=== PATIENT | female | born 1940 | race Caucasian/White ===

== ENCOUNTER 2017-03-23 18:20 | Emergency (ER) | payer OTHER ==
[~2017-03-23] VITALS: Ht 167.6 cm; Wt 90.7 kg
[~2017-03-23 18:20] MED LIST: FLUO20TA29 PO; KETO125C TP; LATA2.5D6 OP; LISI-221 PO; LISI-600 PO; LYR50 PO; NOR10 PO; OMEP20CA10 PO; OXYB10TA4 PO; PRO20 PO; TRAM50TA92 PO; VIT1TABL94 PO; VITA400T9 PO
[2017-03-23 18:31] VITALS: BP_SYST 149
[2017-03-23] MEDS ORDERED: KETOROLAC TROMETHAMINE 30 MG VIAL IM ONE ×2 (20:00→20:45)
[2017-03-23 21:10] VITALS: BP_SYST 129
== END 2017-03-23 21:10 | disposition home or self-care (01) ==
LOC: SED 18:20
DX: G62.9 Polyneuropathy, unspecified (principal); I10 Essential (primary) hypertension; M54.30 Sciatica, unspecified side
CPT/HCPCS: 96372; 99284; J1885

== ENCOUNTER 2018-03-01 08:35 | Emergency (ER) | payer OTHER ==
[~2018-03-01] VITALS: Ht 167.6 cm; Wt 90.7 kg
[2018-03-01 08:35] VITALS: BP_SYST 125
[~2018-03-01 08:35] MED LIST changes: +ACET325T53 PO; +CAT.2 PO; +DORZ10DR8 OP; -FLUO20TA29 PO; +IRON28TA4 PO; -LATA2.5D6 OP; +LIP10 PO; -LISI-600 PO; -LYR50 PO; +MECL12.584 PO; +MELO15TA13 PO; +MIRA50TA PO; -OXYB10TA4 PO; +SPIR25TA PO; -TRAM50TA92 PO; +TROS20TA2 PO
[2018-03-01] MEDS ORDERED: KETOROLAC TROMETHAMINE 60 MG/2 ML VIAL IM ONE (08:45)
[2018-03-01] MEDS ORDERED: CYCLOBENZAPRINE HCL 10 MG TABLET (FLEXERIL) PO ONE (08:45)
[2018-03-01 09:16] LABS: BASOPHILS % (AUTO) 0.3 % (0.0-2.0); EOSINOPHILS # (AUTO) 0.1 K/uL (0.0-0.4); EOSINOPHILS % (AUTO) 1.6 % (0.0-4.0); HEMATOCRIT 33.6 % (36-48); HEMOGLOBIN 10.7 g/dL (12.0-16.0); LYMPHOCYTES % (AUTO) 19.5 % (20.5-51.5); MEAN CORPUSCULAR HEMOGLOBIN 26 pg (27-31); MEAN CORPUSCULAR HGB CONC 32 % (32-36); MEAN CORPUSCULAR VOLUME 81 fL (79.0-98.0); MONOCYTES # (AUTO) 0.4 K/uL (0.0-1.0); MONOCYTES % (AUTO) 7.2 % (1.7-9.3); NEUTROPHILS # (AUTO) 3.8 K/uL (1.8-7.7); NEUTROPHILS % (AUTO) 71.4 % (40.0-70.0); PLATELET COUNT (AUTO) 321 K/uL (130-430); RED BLOOD CELL COUNT(AUTO) 4.16 MIL/uL (4.2-6.2); WHITE BLOOD COUNT (AUTO) 5.4 K/uL (4.8-10.8)
[2018-03-01 09:24] LABS: ANION GAP 6 (5-15); CALCIUM 9.6 mg/dL (8.4-11.0); CHLORIDE 100 mmol/L (98-107); CREATININE 0.68 mg/dL (0.55-1.30); GLUCOSE 109 mg/dL (70-99); POTASSIUM 3.4 mmol/L (3.5-5.1); SODIUM SERUM 139 mmol/L (136-145); UREA NITROGEN, BLOOD 15 mg/dL (8-21)
[2018-03-01 09:32] LABS: ALANINE AMINOTRANSFERASE 15 U/L (12-78); ALBUMIN 3.3 g/dL (3.4-4.8); ASPARTATE AMINOTRANSFERASE 17 U/L (10-37); TOTAL BILIRUBIN 0.6 mg/dL (0.0-1.0)
[2018-03-01] MEDS ORDERED: POTASSIUM CHLORIDE 10 MEQ TAB.PRT.SR PO ONE (10:00)
[2018-03-01 10:14] VITALS: BP_SYST 128
== END 2018-03-01 10:14 | disposition home or self-care (01) ==
LOC: SED 08:35
DX: M19.011 Primary osteoarthritis, right shoulder (principal); E87.6 Hypokalemia; I10 Essential (primary) hypertension; M54.30 Sciatica, unspecified side; Z96.653 Presence of artificial knee joint, bilateral; Z79.899 Other long term (current) drug therapy
CPT/HCPCS: 36415; 71045; 73030; 80053; 84484; 85025; 93005; 96372; 99285; J1885

== ENCOUNTER 2018-03-22 13:49 | Inpatient (IN) | payer OTHER ==
[~2018-03-22] VITALS: Ht 167.6 cm; Wt 89.8 kg
[2018-03-22 13:49] VITALS: BP_SYST 141
[2018-03-22] MEDS ORDERED: CEFAZOLIN 1 GM IVPB PREMIX 50 ML IV ONE (14:00)
[2018-03-22 14:24] LABS: BASOPHILS % (AUTO) 0.5 % (0.0-2.0); EOSINOPHILS # (AUTO) 0.2 K/uL (0.0-0.4); EOSINOPHILS % (AUTO) 2.8 % (0.0-4.0); HEMATOCRIT 33.3 % (36-48); HEMOGLOBIN 10.9 g/dL (12.0-16.0); LYMPHOCYTES # (AUTO) 1.2 K/uL (1.0-5.5); LYMPHOCYTES % (AUTO) 19.3 % (20.5-51.5); MEAN CORPUSCULAR HEMOGLOBIN 26 pg (27-31); MEAN CORPUSCULAR HGB CONC 33 % (32-36); MEAN CORPUSCULAR VOLUME 79 fL (79.0-98.0); MONOCYTES # (AUTO) 0.8 K/uL (0.0-1.0); MONOCYTES % (AUTO) 12.8 % (1.7-9.3); NEUTROPHILS # (AUTO) 3.9 K/uL (1.8-7.7); NEUTROPHILS % (AUTO) 64.6 % (40.0-70.0); PLATELET COUNT (AUTO) 313 K/uL (130-430); RED BLOOD CELL COUNT(AUTO) 4.22 MIL/uL (4.2-6.2); RED CELL DISTRIBUTION WIDTH 15.7 % (9.0-15.0); WHITE BLOOD COUNT (AUTO) 6.1 K/uL (4.8-10.8)
[2018-03-22 14:40] LABS: ANION GAP 12 (5-15); CALCIUM 9.4 mg/dL (8.4-11.0); CHLORIDE 96 mmol/L (98-107); CREATININE 0.88 mg/dL (0.55-1.30); GLUCOSE 85 mg/dL (70-99); SODIUM SERUM 138 mmol/L (136-145); UREA NITROGEN, BLOOD 25 mg/dL (8-21)
[2018-03-22 14:42] LABS: POTASSIUM 2.8 mmol/L (3.5-5.1)
[2018-03-22] MEDS ORDERED: LYR25 PO (14:44)
[2018-03-22 14:45] LABS: ALANINE AMINOTRANSFERASE 9 U/L (12-78); ALBUMIN 2.6 g/dL (3.4-4.8); ASPARTATE AMINOTRANSFERASE 14 U/L (10-37); TOTAL BILIRUBIN 1.1 mg/dL (0.0-1.0)
[2018-03-22] MEDS ORDERED: VANCOMYCIN HCL 1,000 MG in NS 250 ML IV ONE (14:45)
[2018-03-22] MEDS ORDERED: KCL 40 mEq in 100 mL (PREMIX) 100 ML IV ONE (14:45)
[2018-03-22] MEDS ORDERED: POTASSIUM CHLORIDE 20 MEQ TAB.PRT.SR PO ONE (14:45)
[2018-03-22] MEDS ORDERED: VANCOMYCIN HCL 1000 MG/VIAL IV ONE (14:52)
[2018-03-22] MEDS ORDERED: KCL 20 mEq in 100 mL (PREMIX) 200 ML IV ONE ×2 (14:55→15:45)
[2018-03-22] MEDS ORDERED: KCL 20 mEq in 100 mL (PREMIX) 100 ML IV ONE (15:00)
[2018-03-22] MEDS ORDERED: ONDANSETRON HCL 4 MG/2 ML VIAL IVP PRN (15:30)
[2018-03-22] MEDS ORDERED: ACETAMINOPHEN 325 MG TABLET PO PRN (15:30)
[2018-03-22 16:00] VITALS: BP_SYST 158
[2018-03-22] MEDS: 0.45% NACL 1,000 ML IV SCH (16:07)
[2018-03-22 16:09] VITALS: BP_SYST 158
[2018-03-22] MEDS: MORPHINE 4 MG/ML INJ. SYRINGE IVP PRN (16:24)
[2018-03-22] MEDS: OMEPRAZOLE 20 MG CAPSULE.DR (PriLOSEC) PO SCH (17:48)
[2018-03-22] MEDS: amLODIPine BESYLATE 10 MG TABLET PO SCH (17:49)
[2018-03-22 20:10] LABS: PROTHROMBIN TIME 10.4 SECS (9.5-12.5)
[2018-03-22 20:15] VITALS: BP_SYST 131
[2018-03-22] MEDS: cloNIDine HCL 0.2 MG TABLET PO SCH (21:48)
[2018-03-22] MEDS: ceFAZolin SODIUM 2 GM in D5W 50 ML IV SCH (21:48)
[2018-03-22] MEDS ORDERED: CEFAZOLIN 1 GM IVPB PREMIX 50 ML IV SCH (22:00)
[2018-03-22 23:05] LABS: BILIRUBIN,URINE NEGATIVE (NEGATIVE); BLOOD, URINE 2+ (NEGATIVE); CLARITY/URINE HAZY (CLEAR); COLOR,URINE YELLOW (YELLOW); GLUCOSE,URINE NEGATIVE (NEGATIVE); KETONES,URINE 1+ (NEGATIVE); LEUKOCYTE ESTERASE ,URINE 3+ (NEGATIVE); NITRITE, URINE POSITIVE (NEGATIVE); PH,URINE 5.5 (5.0-8.0); PROTEIN URINE TRACE (NEGATIVE); UROBILINOGEN,URINE 0.2 (0.2-1.0)
[2018-03-22 23:15] LABS: BACTERIA,URINE MANY /HPF (None Seen); RBC,URINE 20-50 /HPF (0-3); WBC,URINE 50-80 /HPF (0-3)
[2018-03-22 23:16] LABS: MUCUS,URINE 1+ /LPF (None Seen)
[2018-03-23] VITALS (7 sets, daily range): BP systolic 117–140
[2018-03-23] MEDS: ceFAZolin SODIUM 2 GM in D5W 50 ML IV SCH ×3 (05:43→21:03)
[2018-03-23] MEDS: MORPHINE 4 MG/ML INJ. SYRINGE IVP PRN ×2 (06:00→12:11)
[2018-03-23] MEDS: OMEPRAZOLE 20 MG CAPSULE.DR (PriLOSEC) PO SCH ×2 (06:54→17:25)
[2018-03-23 07:20] LABS: ALANINE AMINOTRANSFERASE 11 U/L (12-78); ALBUMIN 2.3 g/dL (3.4-4.8); ANION GAP 9 (5-15); ASPARTATE AMINOTRANSFERASE 15 U/L (10-37); CALCIUM 8.9 mg/dL (8.4-11.0); CHLORIDE 97 mmol/L (98-107); CREATININE 0.62 mg/dL (0.55-1.30); GLUCOSE 97 mg/dL (70-99); SODIUM SERUM 134 mmol/L (136-145); TOTAL BILIRUBIN 0.8 mg/dL (0.0-1.0); UREA NITROGEN, BLOOD 16 mg/dL (8-21)
[2018-03-23] MEDS: 0.45% NACL 1,000 ML IV SCH ×2 (07:56→20:06)
[2018-03-23] MEDS ORDERED: POLYMYXIN 500,000/BACIT.10,000 UNITS in NS IRR 1 L IR ONE ×2 (08:06→09:56)
[2018-03-23] MEDS ORDERED: LABETALOL 100 MG/ 20ML VIAL IVP ONE (08:45)
[2018-03-23] MEDS ORDERED: fentaNYL CITRATE 250 MCG/5 ML AMP IV ONE (08:45)
[2018-03-23] MEDS ORDERED: ONDANSETRON HCL 4 MG/2 ML VIAL IVP ONE ×2 (08:45→10:15)
[2018-03-23] MEDS ORDERED: LIDOCAINE 2%, 20 ML MDV INJ ONE (08:45)
[2018-03-23] MEDS ORDERED: KETOROLAC TROMETHAMINE 30 MG VIAL IVP ONE (08:45)
[2018-03-23] MEDS ORDERED: PROPOFOL 200MG/ 20ML VIAL (DIPRIVAN) IV ONE (08:45)
[2018-03-23] MEDS ORDERED: SEVOFLURANE 15 MIN GAS INH ONE (08:45)
[2018-03-23] MEDS ORDERED: MIDAZOLAM HCL 5 MG/5 ML VIAL IVP ONE (08:45)
[2018-03-23] MEDS ORDERED: MEPERIDINE HCL/PF 100 MG/ML AMP IM ONE (08:45)
[2018-03-23] MEDS: ATORVASTATIN 10 MG TABLET PO SCH (09:00)
[2018-03-23] MEDS: PREGABALIN 25 MG CAPSULE (LYRICA) PO SCH (09:00)
[2018-03-23] MEDS: cloNIDine HCL 0.2 MG TABLET PO SCH ×2 (09:00→21:02)
[2018-03-23] MEDS ORDERED: NON-FORMULARY MEDICATION (Lisinopril/Hctz* (LISINOPRIL-HCTZ 20-25 Mg Tab*) 1 TAB) PO SCH (09:00)
[2018-03-23] MEDS: FLUoxetine HCL 20 MG CAPSULE (PROzac) PO SCH (09:00)
[2018-03-23] MEDS ORDERED: ENOXAPARIN SODIUM 40 MG/0.4 ML SYRINGE SUBCUT SCH (09:00)
[2018-03-23] MEDS: SPIRONOLACTONE 25 MG TABLET (ALDACTONE) PO SCH (09:00)
[2018-03-23] MEDS ORDERED: KETOROLAC TROMETHAMINE 30 MG VIAL IM ONE (10:15)
[2018-03-23] MEDS ORDERED: NALOXONE HCL 0.4 MG/ML AMP (NARCAN) IVP ONE (10:15)
[2018-03-23] MEDS ORDERED: MORPHINE 4 MG/ML INJ. SYRINGE IVP PRN (10:15)
[2018-03-23] MEDS ORDERED: MIDAZOLAM HCL 5 MG/5 ML VIAL IVP PRN (10:15)
[2018-03-23] MEDS ORDERED: fentaNYL CITRATE/PF 100 MCG/2 ML AMP IVP PRN (10:15)
[2018-03-23] MEDS ORDERED: LISINOPRIL 20 MG TABLET PO ONE (11:00)
[2018-03-23] MEDS ORDERED: HYDROCHLOROTHIAZIDE 25 MG TABLET (HCTZ) PO ONE (11:00)
[2018-03-23] MEDS ORDERED: MORPHINE 4 MG/ML INJ. SYRINGE ONE (11:09)
[2018-03-23] MEDS: ENOXAPARIN SODIUM 40 MG/0.4 ML SYRINGE SUBCUT SCH (12:08)
[2018-03-23] MEDS: VANCOMYCIN HCL 1,500 MG in NS 250 ML IV SCH (12:09)
[2018-03-23] MEDS: amLODIPine BESYLATE 10 MG TABLET PO SCH (17:25)
[2018-03-24 00:27] VITALS: BP_SYST 101
[2018-03-24] MEDS: ceFAZolin SODIUM 2 GM in D5W 50 ML IV SCH ×3 (05:32→21:44)
[2018-03-24] MEDS: 0.45% NACL 1,000 ML IV SCH (05:33)
[2018-03-24] MEDS: OMEPRAZOLE 20 MG CAPSULE.DR (PriLOSEC) PO SCH ×2 (06:01→17:31)
[2018-03-24] MEDS: MORPHINE 4 MG/ML INJ. SYRINGE IVP PRN ×4 (06:27→21:45)
[2018-03-24 08:09] VITALS: BP_SYST 110
[2018-03-24] MEDS: PREGABALIN 25 MG CAPSULE (LYRICA) PO SCH ×2 (08:45→08:57)
[2018-03-24] MEDS: ATORVASTATIN 10 MG TABLET PO SCH (08:45)
[2018-03-24] MEDS: SPIRONOLACTONE 25 MG TABLET (ALDACTONE) PO SCH (08:46)
[2018-03-24] MEDS: FLUoxetine HCL 20 MG CAPSULE (PROzac) PO SCH ×2 (08:46→08:57)
[2018-03-24] MEDS: LISINOPRIL 20 MG TABLET PO SCH (08:47)
[2018-03-24] MEDS: ENOXAPARIN SODIUM 40 MG/0.4 ML SYRINGE SUBCUT SCH (08:48)
[2018-03-24] MEDS: HYDROCHLOROTHIAZIDE 25 MG TABLET (HCTZ) PO SCH (08:49)
[2018-03-24] MEDS: cloNIDine HCL 0.2 MG TABLET PO SCH ×2 (08:49→21:48)
[2018-03-24] MEDS: VANCOMYCIN HCL 1,500 MG in NS 250 ML IV SCH (11:28)
[2018-03-24 12:30] VITALS: BP_SYST 85
[2018-03-24 13:40] VITALS: BP_SYST 96
[2018-03-24 16:47] VITALS: BP_SYST 100
[2018-03-24] MEDS: amLODIPine BESYLATE 10 MG TABLET PO SCH (17:32)
[2018-03-24 20:00] VITALS: BP_SYST 110
[2018-03-25 00:27] VITALS: BP_SYST 106
[2018-03-25] MEDS: 0.45% NACL 1,000 ML IV SCH (02:07)
[2018-03-25] MEDS: MORPHINE 4 MG/ML INJ. SYRINGE IVP PRN ×2 (02:17→08:37)
[2018-03-25] MEDS ORDERED: MORPHINE 4 MG/ML INJ. SYRINGE IVP ONE (03:45)
[2018-03-25 05:50] LABS: BASOPHILS % (AUTO) 0.4 % (0.0-2.0); EOSINOPHILS # (AUTO) 0.2 K/uL (0.0-0.4); EOSINOPHILS % (AUTO) 2.2 % (0.0-4.0); HEMATOCRIT 29.2 % (36-48); HEMOGLOBIN 9.4 g/dL (12.0-16.0); LYMPHOCYTES # (AUTO) 1.5 K/uL (1.0-5.5); LYMPHOCYTES % (AUTO) 15.7 % (20.5-51.5); MEAN CORPUSCULAR HEMOGLOBIN 26 pg (27-31); MEAN CORPUSCULAR HGB CONC 32 % (32-36); MEAN CORPUSCULAR VOLUME 80 fL (79.0-98.0); MONOCYTES # (AUTO) 0.5 K/uL (0.0-1.0); MONOCYTES % (AUTO) 5.7 % (1.7-9.3); NEUTROPHILS # (AUTO) 7.4 K/uL (1.8-7.7); PLATELET COUNT (AUTO) 385 K/uL (130-430); RED BLOOD CELL COUNT(AUTO) 3.64 MIL/uL (4.2-6.2); RED CELL DISTRIBUTION WIDTH 15.9 % (9.0-15.0); WHITE BLOOD COUNT (AUTO) 9.6 K/uL (4.8-10.8)
[2018-03-25] MEDS: OMEPRAZOLE 20 MG CAPSULE.DR (PriLOSEC) PO SCH ×2 (06:12→17:37)
[2018-03-25] MEDS: ceFAZolin SODIUM 2 GM in D5W 50 ML IV SCH ×2 (06:13→13:08)
[2018-03-25 06:16] LABS: ALANINE AMINOTRANSFERASE 9 U/L (12-78); ANION GAP 5 (5-15); ASPARTATE AMINOTRANSFERASE 14 U/L (10-37); CALCIUM 8.7 mg/dL (8.4-11.0); CHLORIDE 97 mmol/L (98-107); CREATININE 0.61 mg/dL (0.55-1.30); GLUCOSE 98 mg/dL (70-99); POTASSIUM 3.4 mmol/L (3.5-5.1); SODIUM SERUM 131 mmol/L (136-145); TOTAL BILIRUBIN 0.4 mg/dL (0.0-1.0); UREA NITROGEN, BLOOD 12 mg/dL (8-21)
[2018-03-25] MEDS: HYDROcodone/ACETAMIN 5-325 MG TAB (NORCO/ VICODIN) PO PRN ×2 (06:17→12:20)
[2018-03-25 07:59] VITALS: BP_SYST 126
[2018-03-25] MEDS ORDERED: VANC1PLA9 IV (08:06)
[2018-03-25] MEDS: ATORVASTATIN 10 MG TABLET PO SCH (08:39)
[2018-03-25] MEDS: PREGABALIN 25 MG CAPSULE (LYRICA) PO SCH (08:40)
[2018-03-25] MEDS: HYDROCHLOROTHIAZIDE 25 MG TABLET (HCTZ) PO SCH (08:40)
[2018-03-25] MEDS: ENOXAPARIN SODIUM 40 MG/0.4 ML SYRINGE SUBCUT SCH (08:41)
[2018-03-25] MEDS: FLUoxetine HCL 20 MG CAPSULE (PROzac) PO SCH (08:41)
[2018-03-25] MEDS: SPIRONOLACTONE 25 MG TABLET (ALDACTONE) PO SCH (08:41)
[2018-03-25] MEDS: cloNIDine HCL 0.2 MG TABLET PO SCH ×2 (09:00→20:19)
[2018-03-25] MEDS: LISINOPRIL 20 MG TABLET PO SCH (09:00)
[2018-03-25 12:25] VITALS: BP_SYST 105
[2018-03-25 12:27] LABS: PROTHROMBIN TIME 10.5 SECS (9.5-12.5)
[2018-03-25 16:20] VITALS: BP_SYST 122
[2018-03-25] MEDS: amLODIPine BESYLATE 10 MG TABLET PO SCH (17:38)
[2018-03-25 20:01] VITALS: BP_SYST 128
[2018-03-25 20:15] VITALS: BP_SYST 128
== END 2018-03-25 20:35 | DRG 464 ==
LOC: SED 13:49 → STU 15:16 → SMU 03-24 18:57
PROVIDERS: ADMIT Internal Medicine; ATTEND Internal Medicine
PROC: 0SPC09Z Removal of Liner from Right Knee Joint, Open Approach (ICD-10-PCS; 2018-03-23)
PROC: 0SBC0ZZ Excision of Right Knee Joint, Open Approach (ICD-10-PCS; 2018-03-23)
PROC: 0SUC09C Supplement Right Knee Joint with Liner, Patellar Surface, Open Approach (ICD-10-PCS; 2018-03-23)
PROC: 0LSQ0ZZ Reposition Right Knee Tendon, Open Approach (ICD-10-PCS; principal; 2018-03-23 09:00)
PROC: 02HV33Z Insertion of Infusion Device into Superior Vena Cava, Percutaneous Approach (ICD-10-PCS; 2018-03-25)
DX: T84.53XA Infection and inflammatory reaction due to internal right knee prosthesis, initial encounter (principal); L03.115 Cellulitis of right lower limb; G62.9 Polyneuropathy, unspecified; E66.01 Morbid (severe) obesity due to excess calories; M86.9 Osteomyelitis, unspecified; S76.111A Strain of right quadriceps muscle, fascia and tendon, initial encounter; E66.9 Obesity, unspecified; Y83.1 Surgical operation with implant of artificial internal device as the cause of abnormal reaction of the patient, or of later complication, without mention of misadventure at the time of the procedure; E78.5 Hyperlipidemia, unspecified; I10 Essential (primary) hypertension; Z96.653 Presence of artificial knee joint, bilateral; F32.9 Major depressive disorder, single episode, unspecified; M19.90 Unspecified osteoarthritis, unspecified site; M25.461 Effusion, right knee; M25.669 Stiffness of unspecified knee, not elsewhere classified; Z68.32 Body mass index [BMI] 32.0-32.9, adult; Z90.710 Acquired absence of both cervix and uterus; Y92.89 Other specified places as the place of occurrence of the external cause; Z91.81 History of falling
CPT/HCPCS: 36415; 71045; 73560-TC; 80053; 81000-TC; 83605; 85025; 85610-TC; 85651-TC; 85730-TC; 86140; 87040-TC; 87070-TC; 87081; 87186-TC; 88300; 93005; 96365; 97110-GP; 97116-GP; 97530-GP; 99285; C1713; C1751; J0690; J1650; J1885; J2001; J2175; J2250; J2270; J2405; J2704; J3010; J3370; J3480; J3490; J7050; J7060; J7120

== ENCOUNTER 2018-07-03 10:07 | Emergency (ER) | payer OTHER ==
[~2018-07-03] VITALS: Ht 167.6 cm; Wt 81.2 kg
[2018-07-03 10:07] VITALS: BP_SYST 156
[~2018-07-03 10:07] MED LIST changes: -DORZ10DR8 OP; -KETO125C TP; +LYR25 PO; -MECL12.584 PO; -MELO15TA13 PO; -MIRA50TA PO; -TROS20TA2 PO
--- NOTE | 2018-07-03 10:07 | NUR ---
Pt BIB BLS and placed to ER bed 05. Pt from [facility] with c/o Right arms pain. Denies injury or trauma. Pt was seen here in ER yesterday and dx with arthritis pain. Pt states that she took a [place] this AM.
--- NOTE | 2018-07-03 10:37 | NUR ---
Dr. Denny at bedside.
[2018-07-03] MEDS ORDERED: ONDANSETRON HCL 4 MG/2 ML VIAL IVP ONE (10:45)
[2018-07-03] MEDS ORDERED: MORPHINE 4 MG/ML INJ. SYRINGE IVP ONE ×3 (10:45→11:30)
--- NOTE | 2018-07-03 10:55 | NUR ---
Pt.'s arrives to bedside.
[2018-07-03] MEDS ORDERED: KETOROLAC TROMETHAMINE 15 MG VIAL IVP ONE (11:30)
--- NOTE | 2018-07-03 11:57 | NUR ---
Pt reports relief from pain s/p morphine and toradol administration x [address] Denny notified.
--- NOTE | 2018-07-03 12:01 | NUR ---
ER Dr. Denny at bedside examining patient.
--- NOTE | 2018-07-03 12:30 | NUR ---
Resting quietly with eyes closed, even respirations. Family member at bedside.
--- NOTE | 2018-07-03 13:27 | NUR ---
Pt resting comfortably in bed with no signs of distress. Pt given meal tray.
--- NOTE | 2018-07-03 14:16 | NUR ---
Pt sleeping comfortably in bed with no signs of distress. Lights turned off per request.
[2018-07-03 15:45] VITALS: BP_SYST 140
--- NOTE | 2018-07-03 15:45 | NUR ---
Patient given written and verbal discharge instructions and verbalizes understanding. ER MD discussed with patient the results and treatment provided. Patient in stable condition. ID arm band removed. Rx of Percocet given. Patient educated on pain management and to follow up with PMD. Pain Scale 0. Opportunity for questions provided and answered. Medication side effect fact sheet provided.
== END 2018-07-03 15:45 | disposition home or self-care (01) ==
LOC: SED 10:07
DX: G89.29 Other chronic pain (principal); M25.511 Pain in right shoulder; M19.90 Unspecified osteoarthritis, unspecified site; I10 Essential (primary) hypertension; Z79.899 Other long term (current) drug therapy
CPT/HCPCS: 96374; 96375; 96376; 99284; J1885; J2270; J2405

== ENCOUNTER 2018-07-19 11:34 | Inpatient (IN) | payer OTHER, MEDICAID ==
[~2018-07-19] VITALS: Ht 167.6 cm; Wt 83.9 kg
[2018-07-19 11:42] VITALS: BP_SYST 141
[2018-07-19] MEDS ORDERED: NACL 0.9% 1,000 ML IV ONE (11:49)
[2018-07-19] MEDS ORDERED: KETOROLAC TROMETHAMINE 30 MG VIAL IVP ONE (12:00)
[2018-07-19] MEDS ORDERED: KETOROLAC TROMETHAMINE 60 MG/2 ML VIAL IM ONE (12:00)
[2018-07-19 12:13] LABS: BASOPHILS % (AUTO) 0.4 % (0.0-2.0); EOSINOPHILS # (AUTO) 0.2 K/uL (0.0-0.4); EOSINOPHILS % (AUTO) 2.2 % (0.0-4.0); HEMATOCRIT 33.7 % (36-48); HEMOGLOBIN 11.1 g/dL (12.0-16.0); MEAN CORPUSCULAR HEMOGLOBIN 27 pg (27-31); MEAN CORPUSCULAR HGB CONC 33 % (32-36); MEAN CORPUSCULAR VOLUME 81 fL (79.0-98.0); MONOCYTES # (AUTO) 0.4 K/uL (0.0-1.0); MONOCYTES % (AUTO) 4.9 % (1.7-9.3); NEUTROPHILS # (AUTO) 7.6 K/uL (1.8-7.7); NEUTROPHILS % (AUTO) 81.5 % (40.0-70.0); PLATELET COUNT (AUTO) 331 K/uL (130-430); RED BLOOD CELL COUNT(AUTO) 4.16 MIL/uL (4.2-6.2); RED CELL DISTRIBUTION WIDTH 18.5 % (9.0-15.0); WHITE BLOOD COUNT (AUTO) 9.2 K/uL (4.8-10.8)
[2018-07-19 12:30] LABS: ANION GAP 11 (5-15); CHLORIDE 103 mmol/L (98-107); CREATININE 0.67 mg/dL (0.55-1.30); GLUCOSE 121 mg/dL (70-99); POTASSIUM 3.1 mmol/L (3.5-5.1); SODIUM SERUM 140 mmol/L (136-145); UREA NITROGEN, BLOOD 11 mg/dL (8-21)
[2018-07-19 12:32] LABS: PROTHROMBIN TIME 10.3 SECS (9.5-12.5)
[2018-07-19 12:36] LABS: ALANINE AMINOTRANSFERASE 31 U/L (12-78); ASPARTATE AMINOTRANSFERASE 36 U/L (10-37); LIPASE 105 U/L (73-393); TOTAL BILIRUBIN 0.5 mg/dL (0.0-1.0)
[2018-07-19] MEDS ORDERED: norco (13:34)
[2018-07-19] MEDS ORDERED: HYDR-2489 PO (13:37)
[2018-07-19] MEDS ORDERED: POTASSIUM CHLORIDE 20 MEQ/PKT PACKET PO ONE (13:45)
[2018-07-19 20:00] VITALS: BP_SYST 158
[2018-07-20] MEDS ORDERED: ALBUTEROL SULFATE 0.083% 2.5 MG/3 ML VIAL.NEB INH PRN (00:30)
[2018-07-20] MEDS ORDERED: ONDANSETRON HCL 4 MG/2 ML VIAL IVP PRN (00:30)
[2018-07-20] MEDS: HYDROcodone/ACETAMIN 5-325 MG TAB (NORCO/ VICODIN) PO PRN ×3 (00:44→20:34)
[2018-07-20 01:14] VITALS: BP_SYST 151
[2018-07-20 03:59] VITALS: BP_SYST 151
[2018-07-20] MEDS: PANTOPRAZOLE SODIUM 40 MG TAB PO SCH (06:31)
[2018-07-20 06:34] LABS: BASOPHILS % (AUTO) 0.3 % (0.0-2.0); EOSINOPHILS # (AUTO) 0.8 K/uL (0.0-0.4); EOSINOPHILS % (AUTO) 10.5 % (0.0-4.0); HEMATOCRIT 30.9 % (36-48); LYMPHOCYTES # (AUTO) 1.5 K/uL (1.0-5.5); LYMPHOCYTES % (AUTO) 19.6 % (20.5-51.5); MEAN CORPUSCULAR HEMOGLOBIN 26 pg (27-31); MEAN CORPUSCULAR HGB CONC 32 % (32-36); MEAN CORPUSCULAR VOLUME 82 fL (79.0-98.0); MONOCYTES # (AUTO) 0.6 K/uL (0.0-1.0); MONOCYTES % (AUTO) 7.7 % (1.7-9.3); NEUTROPHILS # (AUTO) 4.9 K/uL (1.8-7.7); NEUTROPHILS % (AUTO) 61.9 % (40.0-70.0); PLATELET COUNT (AUTO) 270 K/uL (130-430); RED CELL DISTRIBUTION WIDTH 18.3 % (9.0-15.0); WHITE BLOOD COUNT (AUTO) 7.8 K/uL (4.8-10.8)
[2018-07-20] MEDS ORDERED: OMEPRAZOLE 20 MG CAPSULE.DR (PriLOSEC) PO SCH (07:00)
[2018-07-20 07:07] LABS: ALANINE AMINOTRANSFERASE 29 U/L (12-78); ALBUMIN 2.5 g/dL (3.4-4.8); ANION GAP 6 (5-15); ASPARTATE AMINOTRANSFERASE 32 U/L (10-37); CALCIUM 9.1 mg/dL (8.4-11.0); CHLORIDE 104 mmol/L (98-107); CREATININE 0.61 mg/dL (0.55-1.30); GLUCOSE 91 mg/dL (70-99); POTASSIUM 3.6 mmol/L (3.5-5.1); SODIUM SERUM 137 mmol/L (136-145); TOTAL BILIRUBIN 0.4 mg/dL (0.0-1.0); UREA NITROGEN, BLOOD 11 mg/dL (8-21)
[2018-07-20 08:10] VITALS: BP_SYST 137
[2018-07-20] MEDS: cloNIDine HCL 0.2 MG TABLET PO SCH ×2 (09:10→20:34)
[2018-07-20] MEDS: ATORVASTATIN 10 MG TABLET PO SCH (09:10)
[2018-07-20] MEDS: FLUoxetine HCL 20 MG CAPSULE (PROzac) PO SCH (09:10)
[2018-07-20] MEDS: PREGABALIN 25 MG CAPSULE (LYRICA) PO SCH (09:10)
[2018-07-20 12:10] VITALS: BP_SYST 134
[2018-07-20] MEDS ORDERED: MINERAL OIL 30 ML UDC PO ONE (12:45)
[2018-07-20 15:19] VITALS: BP_SYST 117
[2018-07-20] MEDS: amLODIPine BESYLATE 10 MG TABLET PO SCH (17:14)
[2018-07-20 20:13] VITALS: BP_SYST 109
[2018-07-20] MEDS: ACETAMINOPHEN 325 MG TABLET PO PRN (23:20)
[2018-07-21 00:23] VITALS: BP_SYST 119
[2018-07-21] MEDS: PANTOPRAZOLE SODIUM 40 MG TAB PO SCH (05:55)
[2018-07-21] MEDS: HYDROcodone/ACETAMIN 5-325 MG TAB (NORCO/ VICODIN) PO PRN ×2 (05:56→22:20)
[2018-07-21 08:00] VITALS: BP_SYST 127
[2018-07-21] MEDS: PREGABALIN 25 MG CAPSULE (LYRICA) PO SCH (08:12)
[2018-07-21] MEDS: ATORVASTATIN 10 MG TABLET PO SCH (08:12)
[2018-07-21] MEDS: cloNIDine HCL 0.2 MG TABLET PO SCH ×2 (08:13→21:00)
[2018-07-21] MEDS: FLUoxetine HCL 20 MG CAPSULE (PROzac) PO SCH (08:13)
[2018-07-21 12:10] VITALS: BP_SYST 118
[2018-07-21 16:10] VITALS: BP_SYST 129
[2018-07-21] MEDS: amLODIPine BESYLATE 10 MG TABLET PO SCH (18:07)
[2018-07-21 20:00] VITALS: BP_SYST 104
[2018-07-22 00:20] VITALS: BP_SYST 119
[2018-07-22] MEDS: HYDROcodone/ACETAMIN 5-325 MG TAB (NORCO/ VICODIN) PO PRN ×3 (03:25→19:00)
[2018-07-22] MEDS: PANTOPRAZOLE SODIUM 40 MG TAB PO SCH (06:17)
[2018-07-22 08:00] VITALS: BP_SYST 132
[2018-07-22] MEDS: PREGABALIN 25 MG CAPSULE (LYRICA) PO SCH (08:39)
[2018-07-22] MEDS: FLUoxetine HCL 20 MG CAPSULE (PROzac) PO SCH (08:39)
[2018-07-22] MEDS: cloNIDine HCL 0.2 MG TABLET PO SCH ×2 (08:39→20:40)
[2018-07-22] MEDS: ATORVASTATIN 10 MG TABLET PO SCH (08:40)
[2018-07-22 12:00] VITALS: BP_SYST 104
[2018-07-22 15:00] VITALS: BP_SYST 124
[2018-07-22] MEDS: amLODIPine BESYLATE 10 MG TABLET PO SCH (18:00)
[2018-07-22 19:55] VITALS: BP_SYST 123
[2018-07-23 00:20] VITALS: BP_SYST 116
[2018-07-23] MEDS: PANTOPRAZOLE SODIUM 40 MG TAB PO SCH (06:24)
[2018-07-23 07:10] VITALS: BP_SYST 104
[2018-07-23] MEDS: PREGABALIN 25 MG CAPSULE (LYRICA) PO SCH (09:23)
[2018-07-23] MEDS: FLUoxetine HCL 20 MG CAPSULE (PROzac) PO SCH (09:23)
[2018-07-23] MEDS: ATORVASTATIN 10 MG TABLET PO SCH (09:23)
[2018-07-23] MEDS: cloNIDine HCL 0.2 MG TABLET PO SCH ×2 (09:24→21:00)
[2018-07-23 11:15] VITALS: BP_SYST 151
[2018-07-23] MEDS: HYDROcodone/ACETAMIN 5-325 MG TAB (NORCO/ VICODIN) PO PRN (14:09)
[2018-07-23 15:12] VITALS: BP_SYST 112
[2018-07-23] MEDS: amLODIPine BESYLATE 10 MG TABLET PO SCH (17:19)
[2018-07-23 19:55] VITALS: BP_SYST 102
[2018-07-23] MEDS: ACETAMINOPHEN 325 MG TABLET PO PRN (21:30)
[2018-07-24 00:30] VITALS: BP_SYST 118
[2018-07-24] MEDS: PANTOPRAZOLE SODIUM 40 MG TAB PO SCH (06:19)
[2018-07-24 08:16] VITALS: BP_SYST 117
[2018-07-24] MEDS: ATORVASTATIN 10 MG TABLET PO SCH (08:18)
[2018-07-24] MEDS: PREGABALIN 25 MG CAPSULE (LYRICA) PO SCH (08:18)
[2018-07-24] MEDS: FLUoxetine HCL 20 MG CAPSULE (PROzac) PO SCH (08:18)
[2018-07-24] MEDS: cloNIDine HCL 0.2 MG TABLET PO SCH ×2 (08:19→20:02)
[2018-07-24 08:30] VITALS: BP_SYST 117
[2018-07-24 12:56] VITALS: BP_SYST 116
[2018-07-24 15:46] VITALS: BP_SYST 107
[2018-07-24] MEDS: amLODIPine BESYLATE 10 MG TABLET PO SCH (17:06)
[2018-07-24 20:00] VITALS: BP_SYST 108
[2018-07-24] MEDS: HYDROcodone/ACETAMIN 5-325 MG TAB (NORCO/ VICODIN) PO PRN (20:02)
[2018-07-25 00:32] VITALS: BP_SYST 106
[2018-07-25] MEDS: HYDROcodone/ACETAMIN 5-325 MG TAB (NORCO/ VICODIN) PO PRN (04:52)
[2018-07-25] MEDS: PANTOPRAZOLE SODIUM 40 MG TAB PO SCH (06:11)
[2018-07-25 08:06] VITALS: BP_SYST 115
[2018-07-25] MEDS: PREGABALIN 25 MG CAPSULE (LYRICA) PO SCH (08:20)
[2018-07-25] MEDS: ATORVASTATIN 10 MG TABLET PO SCH (08:20)
[2018-07-25] MEDS: cloNIDine HCL 0.2 MG TABLET PO SCH (08:21)
[2018-07-25] MEDS: FLUoxetine HCL 20 MG CAPSULE (PROzac) PO SCH (08:21)
[2018-07-25 11:00] VITALS: BP_SYST 126
[2018-07-25 11:13] VITALS: BP_SYST 126
== END 2018-07-25 11:40 | DRG 641 ==
LOC: SED 11:34 → SMU 18:36
PROVIDERS: ADMIT Internal Medicine; ATTEND Internal Medicine
DX: E87.6 Hypokalemia (principal); S82.143A Displaced bicondylar fracture of unspecified tibia, initial encounter for closed fracture; E44.1 Mild protein-calorie malnutrition; J44.9 Chronic obstructive pulmonary disease, unspecified; D64.9 Anemia, unspecified; K59.00 Constipation, unspecified; M13.0 Polyarthritis, unspecified; E88.09 Other disorders of plasma-protein metabolism, not elsewhere classified; D49.0 Neoplasm of unspecified behavior of digestive system; G62.9 Polyneuropathy, unspecified; Z96.653 Presence of artificial knee joint, bilateral; M54.30 Sciatica, unspecified side; I10 Essential (primary) hypertension; X58.XXXA Exposure to other specified factors, initial encounter; Y93.89 Activity, other specified; Y92.89 Other specified places as the place of occurrence of the external cause; Y99.8 Other external cause status; Z82.49 Family history of ischemic heart disease and other diseases of the circulatory system; Z79.899 Other long term (current) drug therapy; Z68.29 Body mass index [BMI] 29.0-29.9, adult
CPT/HCPCS: 36415; 74021; 80053; 83690-TC; 85025; 85610-TC; 87081; 94640; 96374; 97530-GP; 97535-GP; 99285; J1885

== ENCOUNTER 2023-11-17 13:45 | Emergency (ER) | payer OTHER, MEDICAID ==
[~2023-11-17 13:45] MED LIST changes: +HYDR-4274 PO; -OMEP20CA10 PO; +OMEP20CA15 PO
[2023-11-17 13:52] VITALS: PULSE 86
[2023-11-17] MEDS ORDERED: NACL 0.9% 1,000 ML IV ONE (14:15)
[2023-11-17] MEDS ORDERED: KETOROLAC TROMETHAMINE 30 MG VIAL IVP ONE (14:15)
[2023-11-17 15:04] LABS: BASOPHILS % (AUTO) 0.4 % (0.0-2.0); EOSINOPHILS # (AUTO) 0.1 K/uL (0.0-0.4); EOSINOPHILS % (AUTO) 1.3 % (0.0-4.0); HEMATOCRIT 43.3 % (36-48); HEMOGLOBIN 14.5 g/dL (12.0-16.0); LYMPHOCYTES # (AUTO) 1.7 K/uL (1.0-5.5); MEAN CORPUSCULAR HEMOGLOBIN 29 pg (27-31); MEAN CORPUSCULAR HGB CONC 34 % (32-36); MEAN CORPUSCULAR VOLUME 87 fL (79.0-98.0); MONOCYTES # (AUTO) 0.5 K/uL (0.0-1.0); MONOCYTES % (AUTO) 6.9 % (1.7-9.3); NEUTROPHILS # (AUTO) 4.6 K/uL (1.8-7.7); NEUTROPHILS % (AUTO) 66.4 % (40.0-70.0); PLATELET COUNT (AUTO) 274 K/uL (130-430); RED CELL DISTRIBUTION WIDTH 14.4 % (9.0-15.0); WHITE BLOOD COUNT (AUTO) 6.9 K/uL (4.8-10.8)
[2023-11-17 15:08] LABS: ANION GAP 6 (5-15); CALCIUM 9.7 mg/dL (8.4-11.0); CARBON DIOXIDE 29 mmol/L (23-29); CHLORIDE 96 mmol/L (98-107); GLUCOSE 97 mg/dL (74-106); SODIUM SERUM 131 mmol/L (136-145); UREA NITROGEN, BLOOD 10 mg/dL (8-21)
[2023-11-17 15:24] LABS: ALANINE AMINOTRANSFERASE 14 U/L (12-78); ALBUMIN 3.6 g/dL (3.4-4.8); AMYLASE 51 U/L (0-100); ASPARTATE AMINOTRANSFERASE 14 U/L (10-37); BILIRUBIN,DIRECT 0.2 mg/dL (0.0-0.3); LIPASE 36 U/L (16-77); TOTAL BILIRUBIN 0.6 mg/dL (0.0-1.0); TOTAL PROTEIN, SERUM 7.4 g/dL (6.4-8.3)
[2023-11-17] MEDS ORDERED: KETOROLAC TROMETHAMINE 30 MG VIAL ONE (16:54)
[2023-11-17 17:24] LABS: BILIRUBIN,URINE NEGATIVE (NEGATIVE); BLOOD, URINE 2+ (NEGATIVE); CLARITY/URINE SL CLOUDY (CLEAR); COLOR,URINE YELLOW (YELLOW); GLUCOSE,URINE NEGATIVE (NEGATIVE); KETONES,URINE NEGATIVE (NEGATIVE); LEUKOCYTE ESTERASE ,URINE 3+ (NEGATIVE); NITRITE, URINE NEGATIVE (NEGATIVE); PROTEIN URINE NEGATIVE (NEGATIVE); UROBILINOGEN,URINE 0.2 (0.2-1.0)
[2023-11-17 17:30] LABS: BACTERIA,URINE MANY /HPF (None Seen); RBC,URINE 0-3 /HPF (0-3); WBC,URINE 80-100 /HPF (0-3)
[2023-11-17 17:31] LABS: CALCIUM OXALATE CRYSTALS,UR 0-10 /HPF (None Seen); MUCUS,URINE None Seen /LPF (None Seen)
[2023-11-17] MEDS ORDERED: cefTRIAXone 1 GM IVPB PREMIX 50 ML IV ONE (18:00)
[2023-11-17] MEDS ORDERED: SULF1TAB48 PO (20:57)
[2023-11-17 22:15] VITALS: BP_SYST 102; PULSE 70; RESP 20; TEMP 98.7; O2SAT 98
== END 2023-11-17 22:15 ==
LOC: SED 13:45
DX: N30.00 Acute cystitis without hematuria (principal); K86.9 Disease of pancreas, unspecified; R10.13 Epigastric pain; R06.02 Shortness of breath; K21.9 Gastro-esophageal reflux disease without esophagitis; I10 Essential (primary) hypertension; Z79.899 Other long term (current) drug therapy
CPT/HCPCS: 99285; 74176; 96365; 76705; 71045; 96361; 96375; 80076; 80048; 81001; 82150; 83690; 85025; 87040; 87086; 84484; 36415; 93005; 76376; 83605; 81000; 81015; J0696; J1885; J7030

== ENCOUNTER 2024-03-21 23:31 | Inpatient (IN) | payer OTHER, MEDICAID ==
[~2024-03-21] VITALS: Ht 167.6 cm; Wt 90.7 kg
[2024-03-21 20:00] VITALS: O2SAT 95
[~2024-03-21 23:31] MED LIST changes: +SULF1TAB48 PO
[2024-03-22 00:10] VITALS: BP_SYST 135; PULSE 64; RESP 14; TEMP 96; O2SAT 96
[2024-03-22] MEDS: ONDANSETRON HCL 4 MG/2 ML VIAL IVP ONE (00:46)
[2024-03-22 01:21] LABS: HEMOGLOBIN 13.7 g/dL (12.0-16.0); RED CELL DISTRIBUTION WIDTH 14.6 % (9.0-15.0)
[2024-03-22] MEDS: NACL 0.9% 1,000 ML IV ONE (01:27)
[2024-03-22 01:32] LABS: BASOPHILS % (AUTO) 0.7 % (0.0-2.0); EOSINOPHILS % (AUTO) 0.6 % (0.0-4.0); HEMATOCRIT 40.5 % (36-48); LYMPHOCYTES # (AUTO) 1.2 K/uL (1.0-5.5); MEAN CORPUSCULAR HEMOGLOBIN 29 pg (27-31); MEAN CORPUSCULAR HGB CONC 34 % (32-36); MEAN CORPUSCULAR VOLUME 85 fL (79.0-98.0); MONOCYTES # (AUTO) 0.4 K/uL (0.0-1.0); MONOCYTES % (AUTO) 5.4 % (1.7-9.3); NEUTROPHILS # (AUTO) 5.3 K/uL (1.8-7.7); NEUTROPHILS % (AUTO) 76.3 % (40.0-70.0); PLATELET COUNT (AUTO) 234 K/uL (130-430); RED BLOOD CELL COUNT(AUTO) 4.75 MIL/uL (4.2-6.2); WHITE BLOOD COUNT (AUTO) 6.9 K/uL (4.8-10.8)
[2024-03-22 01:51] LABS: ALANINE AMINOTRANSFERASE 13 U/L (12-78); ALBUMIN 3.5 g/dL (3.4-4.8); ANION GAP 8 (5-15); ASPARTATE AMINOTRANSFERASE 11 U/L (10-37); BILIRUBIN,DIRECT 0.2 mg/dL (0.0-0.3); CALCIUM 8.6 mg/dL (8.4-11.0); CARBON DIOXIDE 26 mmol/L (23-29); CHLORIDE 95 mmol/L (98-107); CREATININE 0.65 mg/dL (0.55-1.30); GLUCOSE 105 mg/dL (74-106); LIPASE 40 U/L (16-77); POTASSIUM 4.6 mmol/L (3.5-5.1); SODIUM SERUM 129 mmol/L (136-145); TOTAL BILIRUBIN 0.5 mg/dL (0.0-1.0); TOTAL PROTEIN, SERUM 7.8 g/dL (6.4-8.3); UREA NITROGEN, BLOOD 13 mg/dL (8-21)
[2024-03-22] MEDS ORDERED: ONDA-8 TL (05:21)
[2024-03-22 05:49] LABS: BILIRUBIN,URINE NEGATIVE (NEGATIVE); BLOOD, URINE 1+ (NEGATIVE); CLARITY/URINE CLOUDY (CLEAR); COLOR,URINE YELLOW (YELLOW); GLUCOSE,URINE NEGATIVE (NEGATIVE); KETONES,URINE NEGATIVE (NEGATIVE); LEUKOCYTE ESTERASE ,URINE 4+ (NEGATIVE); NITRITE, URINE POSITIVE (NEGATIVE); PH,URINE 6.5 (5.0-8.0); PROTEIN URINE TRACE (NEGATIVE)
[2024-03-22 05:50] LABS: BACTERIA,URINE MANY /HPF (None Seen); UROBILINOGEN,URINE 0.2 (0.2-1.0); WBC,URINE >100 /HPF (0-3)
[2024-03-22] MEDS ORDERED: cefTRIAXone 1 GM VIAL ONE ×2 (06:17)
[2024-03-22] MEDS: cefTRIAXone 1 GM in D5W 50 ML IV ONE (06:41)
[2024-03-22] MEDS: D5/0.45 NS 1,000 ML IV ONE (08:53)
[2024-03-22] MEDS ORDERED: MELO-89 PO (09:18)
[2024-03-22] MEDS ORDERED: ESCI10TA PO (09:18)
[2024-03-22] MEDS ORDERED: DOCU250C75 PO (09:18)
[2024-03-22] MEDS ORDERED: ZOLP5TAB2 PO (09:18)
[2024-03-22] MEDS ORDERED: LORA-258 PO (09:18)
[2024-03-22] MEDS ORDERED: TRAM50TA2 PO (09:18)
[2024-03-22 11:45] VITALS: BP_SYST 130; PULSE 65; RESP 16; TEMP 97.3; O2SAT 96
[2024-03-22 13:18] VITALS: BP_SYST 130; PULSE 65; RESP 16; TEMP 97.3; O2SAT 96
[2024-03-22] MEDS: traMADol HCL HCL 50 MG TABLET (ULTRAM) PO PRN (14:26)
[2024-03-22 16:30] VITALS: BP_SYST 126; PULSE 61; RESP 17; TEMP 97.9; O2SAT 95
[2024-03-22] MEDS: PANTOPRAZOLE SODIUM 40 MG TAB PO SCH (18:13)
[2024-03-22] MEDS: SUCRALFATE 1 GM/10 ML UDC GT SCH (18:13)
[2024-03-22] MEDS: amLODIPine BESYLATE 10 MG TABLET PO SCH (18:14)
[2024-03-22 20:00] VITALS: BP_SYST 129; PULSE 65; RESP 20; TEMP 97.5; O2SAT 95
[2024-03-22] MEDS: DOCUSATE SODIUM 250 MG CAPSULE PO SCH (20:41)
[2024-03-22] MEDS: LORazepam 1 MG TABLET PO PRN (20:42)
[2024-03-22] MEDS: ZOLPIDEM TARTRATE 5 MG TABLET PO PRN (20:42)
[2024-03-22] MEDS: HYDROcodone/ACETAMIN 5-325 MG TAB (NORCO/ VICODIN) PO PRN (20:43)
[2024-03-22] MEDS ORDERED: PANTOPRAZOLE SODIUM 40 MG TAB PO SCH (21:00)
[2024-03-23 01:42] VITALS: BP_SYST 100; BP_SYST 127; PULSE 74; RESP 19; TEMP 97.6; O2SAT 96
[2024-03-23 06:30] LABS: ANION GAP 7 (5-15); CALCIUM 8.4 mg/dL (8.4-11.0); CARBON DIOXIDE 27 mmol/L (23-29); CHLORIDE 102 mmol/L (98-107); CREATININE 0.73 mg/dL (0.55-1.30); GLUCOSE 89 mg/dL (74-106); SODIUM SERUM 136 mmol/L (136-145); UREA NITROGEN, BLOOD 11 mg/dL (8-21)
[2024-03-23] MEDS: cefTRIAXone 1 GM IVPB PREMIX 50 ML IV SCH (06:37)
[2024-03-23] MEDS: cefTRIAXone 1 GM IVPB PREMIX 50 ML IV ONE (06:38)
[2024-03-23 06:42] LABS: BASOPHILS % (AUTO) 0.5 % (0.0-2.0); EOSINOPHILS # (AUTO) 0.2 K/uL (0.0-0.4); EOSINOPHILS % (AUTO) 3.7 % (0.0-4.0); HEMATOCRIT 36.8 % (36-48); HEMOGLOBIN 12.2 g/dL (12.0-16.0); LYMPHOCYTES # (AUTO) 1.9 K/uL (1.0-5.5); LYMPHOCYTES % (AUTO) 30.6 % (20.5-51.5); MEAN CORPUSCULAR HEMOGLOBIN 29 pg (27-31); MEAN CORPUSCULAR HGB CONC 33 % (32-36); MEAN CORPUSCULAR VOLUME 87 fL (79.0-98.0); MONOCYTES # (AUTO) 0.5 K/uL (0.0-1.0); NEUTROPHILS # (AUTO) 3.5 K/uL (1.8-7.7); NEUTROPHILS % (AUTO) 57.2 % (40.0-70.0); PLATELET COUNT (AUTO) 238 K/uL (130-430); RED BLOOD CELL COUNT(AUTO) 4.24 MIL/uL (4.2-6.2); RED CELL DISTRIBUTION WIDTH 14.8 % (9.0-15.0); WHITE BLOOD COUNT (AUTO) 6.1 K/uL (4.8-10.8)
[2024-03-23 08:27] VITALS: BP_SYST 122; PULSE 71; RESP 16; TEMP 97.9; O2SAT 95
[2024-03-23] MEDS: FLUoxetine HCL 20 MG CAPSULE (PROzac) PO SCH (09:21)
[2024-03-23] MEDS: CITALOPRAM HYDROBROMIDE 20 MG TABLET PO SCH (09:21)
[2024-03-23 11:18] VITALS: BP_SYST 111; PULSE 66; RESP 16; TEMP 97; O2SAT 95
[2024-03-23] MEDS: D5/0.45 NS 1,000 ML IV SCH (12:16)
[2024-03-23 13:28] VITALS: O2SAT 95
[2024-03-23 16:58] VITALS: BP_SYST 119; PULSE 62; RESP 17; TEMP 97.6; O2SAT 95
[2024-03-23] MEDS: PANTOPRAZOLE SODIUM 40 MG/VIAL (PROTONIX) IVP SCH (22:23)
[2024-03-23] MEDS: METOCLOPRAMIDE HCL 10 MG/2 ML VIAL IVP SCH (22:24)
[2024-03-24 00:25] VITALS: BP_SYST 116; PULSE 84; RESP 19; TEMP 98.4; O2SAT 97
[2024-03-24] MEDS: cefTRIAXone 1 GM IVPB PREMIX 50 ML IV SCH (06:49)
[2024-03-24 08:10] LABS: BASOPHILS % (AUTO) 0.5 % (0.0-2.0); EOSINOPHILS # (AUTO) 0.1 K/uL (0.0-0.4); EOSINOPHILS % (AUTO) 1.6 % (0.0-4.0); HEMATOCRIT 39.4 % (36-48); HEMOGLOBIN 13.3 g/dL (12.0-16.0); LYMPHOCYTES # (AUTO) 1.9 K/uL (1.0-5.5); LYMPHOCYTES % (AUTO) 23.9 % (20.5-51.5); MEAN CORPUSCULAR HEMOGLOBIN 29 pg (27-31); MEAN CORPUSCULAR HGB CONC 34 % (32-36); MEAN CORPUSCULAR VOLUME 86 fL (79.0-98.0); MONOCYTES # (AUTO) 0.5 K/uL (0.0-1.0); MONOCYTES % (AUTO) 6.2 % (1.7-9.3); NEUTROPHILS # (AUTO) 5.4 K/uL (1.8-7.7); NEUTROPHILS % (AUTO) 67.8 % (40.0-70.0); PLATELET COUNT (AUTO) 268 K/uL (130-430); RED BLOOD CELL COUNT(AUTO) 4.59 MIL/uL (4.2-6.2); RED CELL DISTRIBUTION WIDTH 14.9 % (9.0-15.0)
[2024-03-24 08:24] LABS: ANION GAP 7 (5-15); CALCIUM 8.9 mg/dL (8.4-11.0); CARBON DIOXIDE 27 mmol/L (23-29); CHLORIDE 101 mmol/L (98-107); CREATININE 0.63 mg/dL (0.55-1.30); GLUCOSE 111 mg/dL (74-106); POTASSIUM 3.9 mmol/L (3.5-5.1); SODIUM SERUM 135 mmol/L (136-145); UREA NITROGEN, BLOOD 11 mg/dL (8-21)
[2024-03-24 08:30] VITALS: O2SAT 99
[2024-03-24] MEDS: POLYETHYLENE GLYCOL 3350, 17 GM/ POWD.PACK PO SCH (09:11)
[2024-03-24] MEDS: ONDANSETRON 4 MG ODT TAB TL PRN (10:04)
[2024-03-24] MEDS: MINERAL OIL 133 ML ENEMA RC ONE (10:10)
[2024-03-24 11:47] VITALS: BP_SYST 130; PULSE 78; RESP 17; TEMP 98.3; O2SAT 95
[2024-03-24 16:19] VITALS: BP_SYST 136; PULSE 80; RESP 18; TEMP 97.6; O2SAT 95
[2024-03-24 20:05] VITALS: O2SAT 96
[2024-03-24 20:45] VITALS: BP_SYST 127; PULSE 83; RESP 18; TEMP 97.1; O2SAT 96
[2024-03-24] MEDS: MEROPENEM 1 GM IVPB PREMIX 50 ML IV SCH (22:34)
[2024-03-25 01:05] VITALS: BP_SYST 119; PULSE 86; RESP 17; TEMP 97.6; O2SAT 96
[2024-03-25 06:23] LABS: BASOPHILS % (AUTO) 0.6 % (0.0-2.0); EOSINOPHILS # (AUTO) 0.1 K/uL (0.0-0.4); HEMATOCRIT 37.3 % (36-48); HEMOGLOBIN 12.5 g/dL (12.0-16.0); LYMPHOCYTES # (AUTO) 1.7 K/uL (1.0-5.5); LYMPHOCYTES % (AUTO) 24.7 % (20.5-51.5); MEAN CORPUSCULAR HEMOGLOBIN 29 pg (27-31); MEAN CORPUSCULAR HGB CONC 34 % (32-36); MEAN CORPUSCULAR VOLUME 87 fL (79.0-98.0); MONOCYTES # (AUTO) 0.5 K/uL (0.0-1.0); MONOCYTES % (AUTO) 7.2 % (1.7-9.3); NEUTROPHILS # (AUTO) 4.6 K/uL (1.8-7.7); NEUTROPHILS % (AUTO) 65.5 % (40.0-70.0); PLATELET COUNT (AUTO) 266 K/uL (130-430); RED CELL DISTRIBUTION WIDTH 14.1 % (9.0-15.0)
[2024-03-25 06:57] LABS: ALANINE AMINOTRANSFERASE 13 U/L (12-78); ALBUMIN 3.1 g/dL (3.4-4.8); ANION GAP 7 (5-15); ASPARTATE AMINOTRANSFERASE 13 U/L (10-37); CALCIUM 8.6 mg/dL (8.4-11.0); CARBON DIOXIDE 28 mmol/L (23-29); CHLORIDE 101 mmol/L (98-107); CREATININE 0.61 mg/dL (0.55-1.30); GLUCOSE 110 mg/dL (74-106); POTASSIUM 3.8 mmol/L (3.5-5.1); SODIUM SERUM 136 mmol/L (136-145); TOTAL BILIRUBIN 0.5 mg/dL (0.0-1.0); TOTAL PROTEIN, SERUM 7.1 g/dL (6.4-8.3); UREA NITROGEN, BLOOD 11 mg/dL (8-21)
[2024-03-25 07:43] VITALS: BP_SYST 117; PULSE 83; RESP 18; TEMP 96.3; O2SAT 98
[2024-03-25 08:27] VITALS: PULSE 83; RESP 18; TEMP 96.3
[2024-03-25 11:06] VITALS: BP_SYST 141; PULSE 88; RESP 16; TEMP 98.3; O2SAT 98
[2024-03-25 15:44] VITALS: BP_SYST 143; PULSE 78; RESP 16; TEMP 96.8; O2SAT 91
[2024-03-25] MEDS ORDERED: METO-290 PO (17:20)
[2024-03-25 19:14] VITALS: BP_SYST 141; PULSE 82; RESP 16; TEMP 98.6; O2SAT 98
[2024-03-25] MEDS ORDERED: MEROPENEM 1 GM IVPB PREMIX 50 ML IV SCH (21:00)
== END 2024-03-25 19:45 | DRG 392 ==
LOC: SED 23:31 → SMU 03-22 08:21 → OBSVTOIN 03-24 12:13
PROVIDERS: ADMIT Family Medicine; ATTEND Family Medicine
DX: A08.4 Viral intestinal infection, unspecified (principal); N39.0 Urinary tract infection, site not specified; K86.1 Other chronic pancreatitis; K86.2 Cyst of pancreas; I10 Essential (primary) hypertension; F32.A Depression, unspecified; K29.60 Other gastritis without bleeding; K21.9 Gastro-esophageal reflux disease without esophagitis; E78.5 Hyperlipidemia, unspecified; F32.9 Major depressive disorder, single episode, unspecified; T39.395A Adverse effect of other nonsteroidal anti-inflammatory drugs [NSAID], initial encounter; Z96.653 Presence of artificial knee joint, bilateral; Y92.89 Other specified places as the place of occurrence of the external cause; Z74.01 Bed confinement status; Z79.899 Other long term (current) drug therapy
CPT/HCPCS: 36415; 71045; 74018; 80048; 80053; 80076; 81000; 81001; 81015; 83690; 84484; 85025; 87040; 87081; 87086; 87186; 92610-GN; 97112-GP; 97530-GP; 99285; C9113; G0378; J0696; J2185; J2405; J2765; Q0162